=== PATIENT | male | born 1995 | race Caucasian/White ===

== ENCOUNTER 2021-03-15 12:28 | Emergency (ER) | payer SELFPAY ==
[2021-03-15 12:44] VITALS: BP 137/79; PULSE 81; TEMP 98.9; BMI 31.4
[2021-03-15] MEDS ORDERED: SODIUM CHLORIDE 0.9% 500 ML INFUS.BAG IV ONE (13:18)
[2021-03-15] MEDS ORDERED: ONDANSETRON 4 MG/2 ML VIAL IVPB ONE (13:18)
[2021-03-15] MEDS ORDERED: FAMOTIDINE 20 MG/50 ML IVPB 20 MG/50 ML MG IVPB ONE ×2 (13:18→13:53)
[2021-03-15] MEDS ORDERED: KETOROLAC TROMETHAMINE 30 MG/1 ML VIAL IVPUSH ONE (13:25)
[2021-03-15] MEDS ORDERED: KETOROLAC TROMETHAMINE 30 MG/1 ML VIAL ONE (13:52)
[2021-03-15 13:53] LABS: BASO % 0.7 % (0-2.0); EOS % 5.8 % (0-4.5); HEMATOCRIT 46.2 % (35.4-49); HEMOGLOBIN 16.1 GM/dL (11.7-16.9); LYMPH % 36.2 % (8-40); MCHC 34.8 g/dl (32.0-35.9); MEAN CELL VOLUME 89.3 fl (80-96); MEAN PLT VOLUME 9.5 fl (7.5-11.1); MONO % 8.2 % (3.8-10.2); NEUT % 49.1 % (42.8-82.8); PLATELET COUNT 246 K/MM3 (134-434); RBC 5.18 M/mm3 (4.00-5.60); RDW 12.8 % (11.9-15.9); WHITE BLOOD COUNT 6.8 K/mm3 (4.0-10.0)
[2021-03-15] MEDS ORDERED: ONDANSETRON 4 MG/2 ML VIAL ONE (13:53)
[2021-03-15 14:03] LABS: ALBUMIN 4.2 g/dl (3.4-5.0); BLOOD UREA NITROGEN 12.5 mg/dL (7-18); CALCIUM 9.5 mg/dL (8.5-10.1)
[2021-03-15 14:09] LABS: BILIRUBIN,TOTAL 0.4 mg/dL (0.2-1)
[2021-03-15 14:12] LABS: CREATININE 0.7 mg/dL (0.55-1.3)
== END 2021-03-15 14:54 | disposition home or self-care (01) ==
LOC: JER 12:28
PROC: 3E033GC Introduction of Other Therapeutic Substance into Peripheral Vein, Percutaneous Approach (ICD-10-PCS; principal; 2021-03-15)
PROC: 3E0333Z Introduction of Anti-inflammatory into Peripheral Vein, Percutaneous Approach (ICD-10-PCS; 2021-03-15)
PROC: 3E033GC Introduction of Other Therapeutic Substance into Peripheral Vein, Percutaneous Approach (ICD-10-PCS; 2021-03-15)
DX: R10.13 Epigastric pain (principal)
CPT/HCPCS: 36415; 76705-TC; 80053; 83690; 85025; 99284-25

== ENCOUNTER 2021-05-11 11:45 | Emergency (ER) | payer OTHER ==
[2021-05-11 11:55] VITALS: BP 154/84; PULSE 97; TEMP 98.5; BMI 30.9
== END 2021-05-11 13:56 | disposition home or self-care (01) ==
LOC: JER 11:45
DX: B34.9 Viral infection, unspecified (principal)
CPT/HCPCS: 99283-25; C9803; U0003; U0005

== ENCOUNTER 2021-05-20 11:24 | Emergency (ER) | payer OTHER ==
[2021-05-20 11:35] VITALS: BP 145/74; PULSE 72; TEMP 98.6; BMI 21.6
== END 2021-05-20 14:16 | disposition home or self-care (01) ==
LOC: JER 11:24
DX: R07.9 Chest pain, unspecified (principal)
CPT/HCPCS: 71046-TC-FY; 93005; 93010; 99284-25

== ENCOUNTER 2024-07-13 11:05 | Emergency (ER) | payer SELFPAY ==
[2024-07-13 11:10] VITALS: BP 143/88; PULSE 92; RESP 18; TEMP 98.5; BMI 32.3
[2024-07-13] MEDS ORDERED: FAMOTIDINE 20 MG TABLET ONE (11:54)
[2024-07-13] MEDS ORDERED: MAG HYDROX/AL HYDROX/SIMETH 30 ML UNIT-DOSE CUP ONE (11:54)
[2024-07-13] MEDS: FAMOTIDINE 20 MG TABLET PO ONE (11:59)
[2024-07-13] MEDS: SODIUM CHLORIDE 0.9% 500 ML INFUS.BAG IV ONE ×2 (11:59→13:01)
[2024-07-13] MEDS: MAG HYDROX/AL HYDROX/SIMETH -MYLANTA- ORAL SUSPENSION PO ONE (11:59)
[2024-07-13 12:01] LABS: BASO % 0.5 % (0-2.0); EOS % 2.1 % (0-4.5); HEMATOCRIT 46.7 % (35.4-49); HEMOGLOBIN 15.9 GM/dL (11.7-16.9); LYMPH % 31.2 % (8-40); MCH 30.5 pg (25.7-33.7); MCHC 34.1 g/dl (32.0-35.9); MEAN CELL VOLUME 89.3 fl (80-96); MEAN PLT VOLUME 8.3 fl (7.5-11.1); NEUT % 59.2 % (42.8-82.8); PLATELET COUNT 313 10^3/uL (134-434); RBC 5.23 M/mm3 (4.00-5.60); RDW 13.3 % (11.9-15.9); WHITE BLOOD COUNT 9.3 K/mm3 (4.0-10.0)
[2024-07-13 12:21] LABS: POTASSIUM 3.7 mmol/L (3.5-5.1)
[2024-07-13 12:22] LABS: ALBUMIN 4.2 g/dl (3.4-5.0); CALCIUM 10.2 mg/dL (8.5-10.1)
[2024-07-13 12:24] LABS: BLOOD UREA NITROGEN 15.5 mg/dL (7-18)
[2024-07-13 12:28] LABS: BILIRUBIN,TOTAL 0.5 mg/dL (0.2-1); TOT PROT 8.2 g/dl (6.4-8.2)
[2024-07-13 12:32] LABS: CREATININE 0.9 mg/dL (0.55-1.3)
[2024-07-13] MEDS ORDERED: KETOROLAC TROMETHAMINE 30 MG/1 ML VIAL ONE (12:54)
[2024-07-13] MEDS: KETOROLAC TROMETHAMINE 30 MG/1 ML VIAL IVPUSH ONE (13:00)
[2024-07-13 13:19] LABS: HIV INTERPRETATION NEGATIVE (NEGATIVE)
== END 2024-07-13 15:26 | disposition home or self-care (01) ==
LOC: JER 11:05
PROC: 3E0333Z Introduction of Anti-inflammatory into Peripheral Vein, Percutaneous Approach (ICD-10-PCS; principal; 2024-07-13)
DX: K85.00 Idiopathic acute pancreatitis without necrosis or infection (principal); R10.13 Epigastric pain; R11.10 Vomiting, unspecified; Z20.822 Contact with and (suspected) exposure to COVID-19
CPT/HCPCS: 0241U-QW; 36415; 76705-TC; 80053; 83690; 84478; 85025; 86803; 87389; 99284-25